=== PATIENT | male | born 1965 | race Two or more races ===

== ENCOUNTER 2019-08-24 18:43 | Emergency (ER) | payer OTHER ==
[~2019-08-24] VITALS: Ht 172.7 cm; Wt 106.6 kg
== END 2019-08-24 20:39 | disposition home or self-care (01) ==
LOC: ER 18:43
DX: M25.461 Effusion, right knee (principal)

== ENCOUNTER 2022-09-25 08:21 | Emergency (ER) | payer OTHER ==
[~2022-09-25] VITALS: Ht 175.3 cm; Wt 107.5 kg
== END 2022-09-25 17:37 | disposition home or self-care (01) ==
LOC: ER 08:21
DX: S90.31XA Contusion of right foot, initial encounter (principal); X58.XXXA Exposure to other specified factors, initial encounter; Y93.01 Activity, walking, marching and hiking; Y92.9 Unspecified place or not applicable; Y99.9 Unspecified external cause status

== ENCOUNTER → 2023-12-23 | Emergency (ER) | payer OTHER ==
[~2023-12-23] VITALS: Ht 177.8 cm; Wt 116.6 kg
[~2023-12-23] MED LIST: CIPRO500 MG PO; TAMS0.4C PO
[2023-12-23 23:16] LABS: PH,URINE 5.5 (5.0-8.0); URINE APPEARANCE Clear; URINE BILIRRUBIN Negative (NEGATIVE); URINE BLOOD Small; URINE COLOR Yellow; URINE GLUCOSE Negative (NEGATIVE); URINE LEUKOCYTE Negative; URINE NITRATE Negative; URINE PROTEIN Negative (NEGATIVE); URINE UROBILINOGEN 0.2 E.U./dl
[2023-12-23 23:16] LABS: HEMATOCRIT 40.5 % (39.0-48.0); HEMOGLOBIN 13.3 g/dL (13-16.00); MEAN CORPUSCULAR HEMOGLOBIN 29.8 pg (27.00-32.0); MEAN CORPUSCULAR HGB CONC 32.8 g/dl (32.0-36.0); PLATELET COUNT 286 K/uL (150-450); RED BLOOD COUNT 4.45 M/uL (4.00-6.00); RED CELL DISTRIBUTION WIDTH 14.5 % (11.5-14.5)
[2023-12-23 23:20] LABS: URINE BACTERIA 6.2 uL (0.0-1933); URINE RBC 81.9 uL (0.0-20.8); URINE WBC 2.1 uL (0.0-23.2)
[2023-12-23 23:43] LABS: URINE EPITHELIAL CELLS 0.9 uL (0.0-38.8)
[2023-12-23 23:56] LABS: ALBUMIN 4.3 gm/dL (3.4-5.0); BILIRUBIN TOTAL 0.54 mg/dL (0.3-1.2); CALCIUM 9.3 mg/dL (8.5-10.1); CREATININE SERUM 1.22 mg/dL (0.70-1.30); GFR 61.01; GLOBULINA 3.3 G/DL (2.4-3.5); POTASSIUM 3.38 mEq/L (3.5-5.1); TOTAL PROTEIN 7.6 gm/dL (6.4-8.2)
== END | disposition home or self-care (01) ==
LOC: ER 22:09
PROVIDERS: General Practice
DX: R33.8 Other retention of urine (principal); I10 Essential (primary) hypertension